=== PATIENT | female | born 1960 | race Caucasian/White ===

== ENCOUNTER → 2016-10-10 | Outpatient (CLI) | payer BC | LOC: MC.RAD 06:59 | DX: Z12.31 Encounter for screening mammogram for malignant neoplasm of breast (principal) ==

== ENCOUNTER → 2017-10-16 | Outpatient (CLI) | payer BC | LOC: MC.RAD 06:51 | DX: Z12.31 Encounter for screening mammogram for malignant neoplasm of breast (principal) ==

== ENCOUNTER → 2018-10-22 | Outpatient (CLI) | payer OTHER ==
[~2018-10-22] MED LIST: 00186-0370-20 IH; ASPIRIN 32325 MG/TAB PO; CLARITIN-D 10 M1 T24 PO; FLONASEALLERGY NS; LIPITOR 40MG TA40 MG PO; NITROSTAT0.4 MG/TAB SL; TOPROL XL 25MG25 MG PO; ZESTRIL 10MG10 MG PO
== END ==
LOC: MC.RAD 06:53
DX: Z12.31 Encounter for screening mammogram for malignant neoplasm of breast (principal)

== ENCOUNTER → 2019-09-01 | Outpatient (CLI) | payer OTHER | LOC: COL.RAD 07:56 | DX: K82.4 Cholesterolosis of gallbladder (principal); N28.1 Cyst of kidney, acquired; R74.8 Abnormal levels of other serum enzymes ==

== ENCOUNTER → 2019-10-30 | Outpatient (CLI) | payer OTHER | LOC: MC.RAD 07:00 | DX: Z12.31 Encounter for screening mammogram for malignant neoplasm of breast (principal); N64.89 Other specified disorders of breast ==

== ENCOUNTER → 2019-11-05 | Outpatient (CLI) | payer OTHER | LOC: MC.RAD 13:20 | DX: N64.89 Other specified disorders of breast (principal) | CPT/HCPCS: G0279 ==

== ENCOUNTER → 2019-11-17 | Outpatient (CLI) | payer OTHER ==
[~2019-11-17] MED LIST changes: +ASPIRIN 81M81 MG/TA2 PO; +B-12 500 MCG PO; +CARDIZEM120 MG PO; +MAG-OX 400400 MG/TAB PO; +OSCAL 500 TAB500 MG PO; +PRIL40 PO; +THE MEDICINE S200 M2 PO; +VITAMIND3 5000; +ZANAFLEX2 MG PO
== END ==
LOC: COL.RAD 15:23
DX: E78.00 Pure hypercholesterolemia, unspecified (principal); K82.4 Cholesterolosis of gallbladder; Z98.51 Tubal ligation status; Z90.89 Acquired absence of other organs

== ENCOUNTER → 2019-11-17 | Outpatient (CLI) | payer OTHER ==
[2019-11-17] VITALS (11 sets, daily range): BP systolic 105–148; BP diastolic 64–85; PULSE 57–69
[~2019-11-17] VITALS: Ht 165.1 cm; Wt 79.8 kg
--- NOTE | 2019-11-17 07:46 | NUR ---
PT WAS TAKEN TO CT AND POSITIONED ON THE TABLE. PT MADE COMFORTABLE. IMAGES TAKEN AND SENT TO
--- NOTE | 2019-11-17 08:04 | NUR ---
PROCEDURE COMPLETED. PT BROUGHT BACK TO RAD HOLDING VIA [employer]. REPORTS PAIN TO ABD AT 9/10. GIVEN ICE PACK. VSS. BROUGHT INTO ROOM. SPECIMENT TAKEN TO LAB
--- NOTE | 2019-11-17 10:28 | NUR ---
took pt to front lobby in wheelchair. went ot get the truck.
== END ==
LOC: COL.RAD 06:53
DX: E78.00 Pure hypercholesterolemia, unspecified (principal); K82.4 Cholesterolosis of gallbladder

== ENCOUNTER 2019-11-20 02:30 | Emergency (ER) | payer OTHER ==
[~2019-11-20] VITALS: Ht 165.1 cm; Wt 81.8 kg
[2019-11-20 02:35] VITALS: TEMP 98
[2019-11-20 02:55] LABS: BASO % 0.3 % (0.0-2.0); EOS # 0.1 (0.0-0.7); EOS % 1.8 % (0-4.0); GRAN # 3.5 (1.4-6.5); GRAN % 52.1 % (42.2-75.2); HEMATOCRIT 38.7 % (37.0-47.0); HEMOGLOBIN 12.5 g/dl (12.5-16.0); LYMPH # 2.5 (1.2-3.4); LYMPH % 37.5 % (20.0-51.0); MEAN CELL VOLUME 89 fl (80.0-100.0); MEAN CORPUSCULAR HEMOGLOBIN 29 pg (27.0-31.0); MEAN CORPUSCULAR HGB CONC 32 g/dl (33.0-37.0); MEAN PLATELET VOLUME 9.6 fl (7.4-10.4); MONO # 0.5 (0.1-0.6); PLATELET COUNT 214 K/mm3 (130-400); RED BLOOD COUNT 4.37 M/mm3 (4.10-5.30); REDCELL DISTRIBUTION WIDTH-CV 12.7 % (11.5-14.5)
[2019-11-20 03:10] LABS: ALANINE AMINOTRANSFERASE 58 U/L (9-52); ALBUMIN 4.4 gm/dL (3.5-5.0); ALKALINE PHOSPHATASE 219 U/L (50-136); ANION GAP 8 mmol/L (7-16); AST,SGOT 98 U/L (15-37); BILIRUBIN,TOTAL 0.7 mg/dL (0.0-1.0); BLOOD UREA NITROGEN 22 mg/dL (7-17); C-REACTIVE PROTEIN 1.9 mg/dL (0.0-0.9); CALCIUM 9.2 mg/dL (8.4-10.2); CARBON DIOXIDE 29 mmol/L (22-30); CHLORIDE 104 mmol/L (98-107); CREATININE, serum 0.77 (0.52-1.25); GLUCOSE 104 mg/dL (74-106); LIPASE 64 U/L (23-300); POTASSIUM 3.8 mmol/L (3.4-5.0); SODIUM 141 mmol/L (137-145); TOTAL PROTEIN 7.9 gm/dL (6.4-8.2)
[2019-11-20 03:18] LABS: INR 0.9 (0.8-3.0); PARTIAL THROMBOPLASTIN TIME 30.8 SECONDS (26.0-37.0); PROTHROMBIN TIME 10.9 SECONDS (9.7-12.8)
[2019-11-20 03:43] LABS: TROPONIN-I < 0.012 ng/mL (0.000-0.035)
[2019-11-20 04:12] VITALS: BP 101/68
[2019-11-20 05:00] VITALS: PULSE 67
== END 2019-11-20 05:04 | disposition home or self-care (01) ==
LOC: COL.ER 02:30
PROVIDERS: Emergency Medicine
DX: R10.13 Epigastric pain (principal); I10 Essential (primary) hypertension; I25.10 Atherosclerotic heart disease of native coronary artery without angina pectoris; Z79.82 Long term (current) use of aspirin
CPT/HCPCS: J2405; J3010; J7030; Q9967

== ENCOUNTER → 2020-06-28 | Outpatient (CLI) | payer OTHER | LOC: COL.RAD 07:22 | DX: K82.4 Cholesterolosis of gallbladder (principal) ==

== ENCOUNTER → 2020-11-04 | Outpatient (CLI) | payer OTHER | LOC: MC.RAD 06:57 | DX: Z12.31 Encounter for screening mammogram for malignant neoplasm of breast (principal) ==

== ENCOUNTER → 2021-07-25 | Outpatient (CLI) | payer OTHER | LOC: COL.RAD 06:59 | DX: K82.4 Cholesterolosis of gallbladder (principal); R76.8 Other specified abnormal immunological findings in serum ==

== ENCOUNTER → 2021-10-06 | Outpatient (CLI) | payer OTHER | LOC: MC.RAD 09:51 | DX: N60.42 Mammary duct ectasia of left breast (principal); Z95.818 Presence of other cardiac implants and grafts ==

== ENCOUNTER → 2023-02-07 | Outpatient (CLI) | payer OTHER ==
[~2023-02-07] MED LIST changes: +BENTYL 20MG20 MG/TAB PO; +NORCO 325 MG-51 TAB PO; +ZOFRAN 4MG T4 MG/TAB PO
== END ==
LOC: MC.RAD 07:05
DX: Z12.31 Encounter for screening mammogram for malignant neoplasm of breast (principal)

== ENCOUNTER 2023-02-08 23:47 | Emergency (ER) | payer OTHER ==
[~2023-02-08] VITALS: Ht 165.1 cm; Wt 95.5 kg
[~2023-02-08 23:47] MED LIST changes: -BENTYL 20MG20 MG/TAB PO; -NORCO 325 MG-51 TAB PO; -ZOFRAN 4MG T4 MG/TAB PO
[2023-02-08 23:50] VITALS: TEMP 97.9
[2023-02-09 00:10] LABS: BASO # 0.1 K/mm3 (0.0-0.2); BASO % 0.5 % (0.0-2.0); EOS # 0.1 K/mm3 (0.0-0.7); EOS % 1.3 % (0.0-4.0); GRAN # 5.8 K/mm3 (1.4-6.5); GRAN % 52.1 % (42.2-75.2); HEMATOCRIT 40.3 % (37.0-47.0); LYMPH # 4.3 K/mm3 (1.2-3.4); LYMPH % 38.5 % (20.0-51.0); MEAN CELL VOLUME 91 fl (80.0-100.0); MEAN CORPUSCULAR HEMOGLOBIN 29 pg (27-31); MEAN CORPUSCULAR HGB CONC 32 g/dl (33.0-37.0); MEAN PLATELET VOLUME 9.6 fl (7.4-10.4); MONO # 0.8 K/mm3 (0.1-0.6); MONO % 7.3 % (1.7-9.3); PLATELET COUNT 272 K/mm3 (130-400); RED BLOOD COUNT 4.45 M/mm3 (4.10-5.30); REDCELL DISTRIBUTION WIDTH-CV 13.3 % (11.5-14.5)
[2023-02-09 00:32] LABS: ALBUMIN 3.9 gm/dL (3.4-4.8); BILIRUBIN,TOTAL 0.4 mg/dL (0.2-1.2); CALCIUM 9.2 mg/dL (8.4-10.2); CREATININE, serum 1.08 mg/dL (0.57-1.11); POTASSIUM 3.7 mmol/L (3.5-4.5); TOTAL PROTEIN 7.6 gm/dL (6.2-8.1)
[2023-02-09 00:38] LABS: TROPONIN-I 0.015 ng/mL (0.00-0.033)
[2023-02-09] MEDS ORDERED: ZOFRAN 4MG T4 MG/TAB PO (02:17)
[2023-02-09] MEDS ORDERED: NORCO 325 MG-51 TAB PO (02:17)
[2023-02-09] MEDS ORDERED: BENTYL 20MG20 MG/TAB PO (02:17)
[2023-02-09 02:31] VITALS: BP 142/78; PULSE 76
== END 2023-02-09 02:31 | disposition home or self-care (01) ==
LOC: COL.ER 23:47
PROVIDERS: Emergency Medicine
DX: K80.50 Calculus of bile duct without cholangitis or cholecystitis without obstruction (principal); K82.8 Other specified diseases of gallbladder
CPT/HCPCS: J1885; J2270; J2405; Q9967